=== PATIENT | male | born 1975 | race Caucasian/White ===

== ENCOUNTER 2023-05-26 20:29 | Emergency (ER) | payer BC, SELFPAY ==
[2023-05-26 20:33] VITALS: BP 155/95; PULSE 78; RESP 16; TEMP 36.4; O2SAT 96; BMI 34.7
--- NOTE | 2023-05-26 21:32 | ED_ITS ---
HPI - Abdominal Pain 2 General: Chief Complaint: Abdominal Pain Stated Complaint: abd pain, vomit blood 4 days diah. Time Seen by Provider: 05/26/23 21:30 Source: patient Mode of arrival: ambulatory Limitations: no limitations History of Present Illness: Patient is a nice 47-year-old male who presents to ED today with complaint of abdominal cramping/pain, nausea, vomiting, diarrhea. Patient states approximately 5 days ago he had fairly acute onset abdominal cramping and diarrhea that lasted one day. He attributed symptoms to possible food poisoning although cannot identify any possible culprit/poor food exposure. He states following this he was asymptomatic for approximately 3 days before symptoms starting again yesterday. He states he has had intermittent cramping, diffuse watery diarrhea, and approximately 1-2 episodes of vomiting. He states he has not ran fevers. Denies sick contacts. Denies recent antibiotic use. MD elicited complaint: abdominal pain and other (N/V/D) Pertinent past history: none Onset (ago): day(s) Pain Consistency: intermittent Location: Diffuse Severity: moderate Quality: cramping Radiation: none Migration to: no migration Exacerbating factors: nothing Relieving factors: nothing Associated Symptoms: Reports GI cramping, diarrhea, nausea and vomiting; Denies belching, bloating, chills, constipation, dysuria, fever(s), heartburn, hematochezia and melena Review of Systems 2 Const: Denies: fever(s), chills, body aches, fatigue or malaise Card: Denies: chest pain Resp: Denies: dyspnea GI: Reports: abdominal pain, nausea, vomiting, diarrhea and GI cramping; Denies: dysphagia, heartburn, constipation, bloating, belching, pain on defecation, rectal pain, hematochezia or melena : Denies: dysuria Musc: Denies: neck pain, back pain, extremity pain or joint pain Skin/Breast: Denies: rash Neuro: Denies: headache(s), numbness in extremities, weakness in extremities or sensory changes Physical Exam 2 Const: COMMON NORMALS: no acute distress, average body habitus, patient oriented x3, no limitations, healthy appearing, alert and well nourished HENMT: COMMON NORMALS: normocephalic and atraumatic HEAD & SCALP: n ormocephalic and atraumatic Eye: COMMON NORMALS: no scleral icterus Neck/C-Spine: COMMON NORMALS: full ROM, no lymphadenopathy, supple and no meningeal signs Chest: COMMONS NORMALS: normal inspection of the chest Resp: COMMON NORMALS: normal respiratory effort and clear to auscultation bilaterally AUSCULTATION: clear to auscultation bilaterally Cardio: COMMON NORMALS: regular rate and regular rhythm RATE: regular rate RHYTHM: regular rhythm GI: COMMON NORMALS: Normal to inspection, nondistended, normoactive bowel sounds present, Soft to palpation, No hepatosplenomegaly present and no masses INSPECTION: Yes normal to inspection AUSCULTATION: Yes normoactive bowel sounds PALPATION: Yes Soft to palpation, Yes Tenderness to palpation present (GI) (mild diffusely), No Guarding due to palpation present (GI), No Rigid due to palpation and Yes No hepatosplenomegaly present : COMMON NORMALS: Yes no CVA tenderness BLADDER/KIDNEY EXAM: Yes no CVA tenderness Back/Pelvis: COMMON NORMALS: no CVA tenderness and thoracic and lumbar spine normal to inspection Extremity: COMMON NORMALS: normal to inspection Neuro: COMMON NORMALS: patient oriented x3 SENSORIUM/ORIENTATION: Yes alert MENINGEAL SIGNS: Yes no meningeal signs Skin: COMMON NORMALS: no rashes or lesions noted GENERAL SKIN EXAM: no rashes or lesions noted Course 2 Vital Signs: Vital signs: Vital Signs Temperature 97.6 F 05/26/23 20:33 Pulse Rate 78 05/26/23 20:33 Respiratory Rate 16 05/26/23 20:33 Blood Pressure 155/95 05/26/23 20:33 Pulse Oximetry 96 05/26/23 20:33 MDM - Abdominal Pain Medical Decision Making Patient appears in no acute distress. His vital signs are stable. Blood work is completely unremarkable. Stool sample was given here however it was formed so C. difficile cannot be ran. Lab will try to run remainder of stool sample labs. His CT scan showing no acute findings. At this time we will treat his nausea with Zofran and give him Bentyl for the abdominal cramping. Recommend he follow-up with primary care early this week for reevaluation. Return to ED precautions given. Lab Data 05/26/23 21:56 05/26/23 21:56 Labs/Radiology: Radiology Impressions Abdomen/Pelvis CT 05/26/23 21:45 IMPRESSION: No acute findings. Laboratory Results WBC 10.20 10^3/uL (3.29-11.43) 05/26/23 21:56 RBC 5.14 10^6/uL (3.85-5.65) 05/26/23 21:56 Hgb 15.10 g/dL (11.27-16.99) 05/26/23 21:56 Hct 45.4 % (37-53) 05/26/23 21:56 MCV 88.3 fl (82-101) 05/26/23 21:56 MCH 29.4 pg (27-33) 05/26/23 21:56 MCHC 33.3 g/dL (30-55) 05/26/23 21:56 RDW 12.3 % (12.1-15.1) 05/26/23 21:56 Plt Count 225 10^3/cmm (157-399) 05/26/23 21:56 MPV 8.7 fL (7.4-10.4) 05/26/23 21:56 Neut % (Auto) 67.8 % 05/26/23 21:56 Lymph % (Auto) 20.9 % 05/26/23 21:56 Treasure % (Auto) 7.0 % 05/26/23 21:56 Eos % (Auto) 3.9 % 05/26/23 21:56 Baso % (Auto) 0.2 % 05/26/23 21:56 Neut # (Auto) 6.92 10^3/uL (1.8-7.7) 05/26/23 21:56 Lymph # (Auto) 2.1 10^3/uL (0.8-4.8) 05/26/23 21:56 Treasure # (Auto) 0.7 10^3/uL (0.2-0.9) 05/26/23 21:56 Eos # (Auto) 0.4 10^3/uL (0.0-0.8) 05/26/23 21:56 Baso # (Auto) 0.0 10^3/uL (0.0-0.1) 05/26/23 21:56 Nucleated RBC % (auto) 0 % 05/26/23 21:56 Nucleated RBCs # 0.0 /100WBC 05/26/23 21:56 PT 12.90 SECONDS (12.1-14.9) 05/26/23 21:56 INR 0.95 (0.8-1.2) 05/26/23 21:56 APTT 25.4 SECONDS (23.9-36.7) 05/26/23 21:56 Sodium 138 mmol/L (136-145) 05/26/23 21:56 Potassium 3.9 mmol/L (3.5-5.1) 05/26/23 21:56 Chloride 101 mmol/L (98-107) 05/26/23 21:56 Carbon Dioxide 23 mmol/L (22-29) 05/26/23 21:56 Anion Gap 17.9 (5-19) 05/26/23 21:56 BUN 7 mg/dL (6-20) 05/26/23 21:56 Creatinine 0.8 mg/dL (0.7-1.2) 05/26/23 21:56 GFR Calculation 102.7 mL/min (90-130) 05/26/23 21:56 Glucose 106 mg/dL (65-115) 05/26/23 21:56 Calculated Osmolality 284 mOsm/kg (285-295) L 05/26/23 21:56 Calcium 9.4 mg/dL (8.5-10.5) 05/26/23 21:56 Total Bilirubin 0.5 mg/dL (0.15-1.2) 05/26/23 21:56 AST 18 U/L (0-40) 05/26/23 21:56 ALT 40 U/L (0-41) 05/26/23 21:56 Alkaline Phosphatase 80 U/L (40-130) 05/26/23 21:56 Total Protein 7.3 g/dL (6.6-8.7) 05/26/23 21:56 Albumin 4.4 g/dL (3.5-5.2) 05/26/23 21:56 Globulin 2.9 g/dL (1.3-4.6) 05/26/23 21:56 Lipase 23 U/L (13-60) 05/26/23 21:56 All radiology interpretation(s) finalized by discharge Discharge Plan Discharge Patient Disposition: Home Clinical Impression: Gastroenteritis Condition: Stable Prescriptions: New ondansetron 4 mg tablet,disintegrating 4 mg PO Q8H PRN (Reason: nausea and vomiting) Qty: 14 0RF dicyclomine 10 mg capsule 10 mg PO TID Qty: 14 0RF Discharge Orders: Discharge ED (Routine); Ordered 05/26/23 Ordered By: Anuja Remy Referrals: Ruchi Mcnamara APRN [Primary Care Provider] - Activity Restrictions/Additional Instructions: As we discussed I want you to start doing a clear liquid diet over the next 24 to 48 hours and slowly advance to soft foods and then again advance slowly into a regular diet. Please follow-up with your primary care provider early this week if symptoms persist. You need to return to the emergency department for continued vomiting, diarrhea, severe abdominal pain, fevers, yellowing to your skin or eyes, generally feeling worse or unwell, or any other concerns you may have. I hope you begin to feel better soon. Coding Level of Care Code ED Staff Rn for Gt Tejeda
--- NOTE | 2023-05-26 21:45 | CTR_ITS ---
PROCEDURE INFORMATION: Exam: CT Abdomen And Pelvis With Contrast Exam date and time: 05/26/2023 10:18 PM Age: 47 years old Clinical indication: Nausea and vomiting; Abdominal pain; Prior surgery; Surgery date: 6+ months; Surgery type: Gb. Small bowel. Hernia. Patient HX: Epigastric pain with n/v/d. ; Additional info: Abdominal pain, diffuse diarrhea, vomiting TECHNIQUE: Imaging protocol: Computed tomography of the abdomen and pelvis with contrast. Radiation optimization: All CT scans at this facility use at least one of these dose optimization techniques: automated exposure control; mA and/or kV adjustment per patient size (includes targeted exams where dose is matched to clinical indication); or iterative reconstruction. Contrast material: OMNI 350; Contrast volume: 100 ml; Contrast route: INTRAVENOUS (IV); REPORTING DATA: Count of CT and Cardiac NM exams in prior 12 months: This patient has received 0 known CTs and 0 known cardiac nuclear medicine studies in the 12 months prior to the current study. COMPARISON: No relevant prior studies available. RADIATION DOSE METRICS: Total DLP (mGy-cm): 1109.23 FINDINGS: Liver: Unremarkable. Gallbladder and bile ducts: Cholecystectomy. Pancreas: Pancreatic atrophy. No main duct dilation. Spleen: Unremarkable. Adrenal glands: Unremarkable. Kidneys and ureters: No hydronephrosis or hydroureter. No renal or ureteral calculi. Stomach and bowel: Stomach is distended with ingested material. No bowel obstruction. Appendix: No evidence of appendicitis. Intraperitoneal space: Unremarkable. No free air. No significant fluid collection. Vasculature: No abdominal aortic aneurysm. Lymph nodes: No enlarged lymph nodes. Urinary bladder: Unremarkable as visualized. Reproductive: Unremarkable as visualized. Bones/joints: No acute fracture. Mild multilevel disc degeneration and facet arthropathy. Soft tissues: Unremarkable. CT/CT abdomen pelvis w con* [id number] IMPRESSION: No acute findings.
[2023-05-26 22:09] LABS: Basophils % 0.2 %; Eosinophils # 0.4 10^3/uL (0.0-0.8); Eosinophils % 3.9 %; Hematocrit 45.4 % (37-53); Lymphocytes # 2.1 10^3/uL (0.8-4.8); Lymphocytes % 20.9 %; Mean Corpuscular HGB Conc 33.3 g/dL (30-55); Mean Corpuscular Hemoglobin 29.4 pg (27-33); Mean Corpuscular Volume 88.3 fl (82-101); Mean Platelet Volume 8.7 fL (7.4-10.4); Monocytes # 0.7 10^3/uL (0.2-0.9); Neutrophils # 6.92 10^3/uL (1.8-7.7); Neutrophils % 67.8 %; Nucleated Red Blood Cells % 0 %; Platelet Count 225 10^3/cmm (157-399); Red Blood Count 5.14 10^6/uL (3.85-5.65); Red Cell Distribution Width 12.3 % (12.1-15.1)
[2023-05-26] MEDS: sodium chloride 0.9% 1,000 ML 999 ML IV (22:11)
[2023-05-26] MEDS: iohexol 350 mg/mL 500 mL Btl (per mL) IV (22:21)
[2023-05-26 22:24] LABS: INR 0.95 (0.8-1.2)
[2023-05-26 22:25] LABS: Partial Thromboplastin Time 25.4 SECONDS (23.9-36.7)
[2023-05-26 22:32] LABS: Alanine Aminotransferase 40 U/L (0-41); Albumin Level 4.4 g/dL (3.5-5.2); Alkaline Phosphatase 80 U/L (40-130); Anion Gap 17.9 (5-19); Aspartate Amino Transferase 18 U/L (0-40); Blood Urea Nitrogen 7 mg/dL (6-20); Calcium 9.4 mg/dL (8.5-10.5); Carbon Dioxide 23 mmol/L (22-29); Chloride 101 mmol/L (98-107); Globulin 2.9 g/dL (1.3-4.6); Glomerular Filtration Rate 102.7 mL/min (90-130); Glucose 106 mg/dL (65-115); Lipase 23 U/L (13-60); Osmolality Calculated 284 mOsm/kg (285-295); Potassium 3.9 mmol/L (3.5-5.1); Sodium 138 mmol/L (136-145); Total Bilirubin 0.5 mg/dL (0.15-1.2); Total Protein 7.3 g/dL (6.6-8.7)
[2023-05-27] MEDS: dicyclomine 10 mg Capsule PO (00:06)
[2023-05-27] MEDS: ondansetron 4 MG Tablet PO (00:06)
[2023-05-27 00:10] VITALS: BP 112/81; PULSE 78; RESP 18; O2SAT 95
== END 2023-05-27 00:09 | disposition home or self-care (01) ==
PROVIDERS: Internal Medicine; Emergency Provider Physician Assistant; PCP Nurse Practitioner Family
DX: K52.9 Noninfective gastroenteritis and colitis, unspecified (principal)
CPT/HCPCS: 74177; 80053; 82274; 83630; 83690; 85025; 85610; 85730; 96360; 96361; 99285; J7030; Q0162; Q9967

== ENCOUNTER 2024-02-05 19:42 | Emergency (ER) | payer BC, SELFPAY ==
[2024-02-05 19:56] VITALS: BP 138/86; PULSE 103; RESP 18; TEMP 36.7; O2SAT 98; BMI 34.2
[2024-02-05 20:43] VITALS: BP 138/86; PULSE 103; RESP 18; TEMP 36.7; O2SAT 98
--- NOTE | 2024-02-05 22:26 | W.ED.MALEGU ---
HPI - Male Genitourinary General: Chief complaint: Urogenital-Male Stated complaint: Lower back pain Time Seen by Provider: 02/05/24 20:30 Source: patient Mode of arrival: ambulatory Limitations: no limitations History of Present Illness: Patient is a 48-year-old male presenting to the emergency department complaining of rash for the past few days. Was diagnosed with shingles 2 days ago, states that his urged him to come to the ED as it was spreading ventrally around to his abdomen. He states he does not think anything is wrong and his pain has been controlled with gabapentin. Also was taking valacyclovir as well as prednisone. No other new symptoms reported this time. No fever, nausea, vomiting, difficulty urinating, or other symptoms at this time. MD Complaint: other (Rash) Onset (ago): day(s) Duration: constant Associated symptoms: Deny dysuria, nausea or vomiting Related Data Home Medications Medication Instructions Recorded Confirmed bupropion HCl 150 mg 24 hr tablet, mg PO 02/03/24 02/03/24 extended release cyclobenzaprine 5 mg tablet mg PO 02/03/24 02/03/24 fluoxetine 20 mg capsule mg PO 02/03/24 02/03/24 oxybutynin chloride 10 mg mg PO 02/03/24 02/03/24 tablet,extended release 24 hr trazodone 50 mg tablet mg PO 02/03/24 02/03/24 Previous Rx's Medication Instructions Recorded gabapentin 600 mg tablet 600 mg PO DAILY #45 tabs 02/03/24 prednisone 20 mg tablet 60 mg (3 x 20 mg) PO DAILY 5 days 02/03/24 #15 tabs valacyclovir 1 gram tablet 1,000 mg PO Q8H 10 days #30 tabs 02/03/24 Allergies Allergy/AdvReac Type Severity Reaction Status Date / Time No Known Allergies Allergy Verified 02/03/24 12:58 Review of Systems General: Reports: 10 or more systems reviewed and unremarkable except in HPI and below Const: Denies: fever(s), chills or fatigue Eyes: Denies: change in vision ENMT: Denies: throat pain, ear or mastoid pain or nasal discharge Card: Denies: chest pain, palpitations, swelling of feet/ankles or lightheadedness Resp: Denies: dyspnea, productive cough or wheezing GI: Denies: abdominal pain, nausea, vomiting, diarrhea or constipation : Denies: flank pain, difficulty urinating, dysuria or urinary frequency Musc: Denies: neck pain, back pain or joint pain Skin/Breast: Reports: rash Neuro: Denies: headache(s), numbness in extremities or weakness in extremities PFSH ED PFSH: Social History Smoking and tobacco/nicotine status: current every day tobacco/nicotine user (vape) Physical Exam Const: COMMON NORMALS: no acute distress and no limitations GENERAL APPEARANCE: cooperative, comfortable and well developed ORIENTATION/CONSCIOUSNESS: Yes awake HENMT: COMMON NORMALS: normocephalic, atraumatic and hearing grossly normal bilaterally HEAD & SCALP: normocephalic and atraumatic Eye: COMMON NORMALS: Equal, round and reactive pupils present, EOMs intact bilaterally and conjunctivae normal CONJUNCTIVA: Yes conjunctivae normal PUPIL: Yes Equal, round and reactive pupils present Neck/C-Spine: COMMON NORMALS: full ROM, supple and no JVD Resp: COMMON NORMALS: normal respiratory effort, No retractions, No use of accessory muscles and clear to auscultation bilaterally AUSCULTATION: clear to auscultation bilaterally Cardio: COMMON NORMALS: no JVD, regular rate, regular rhythm, No clicks present (Cardio), No murmurs present (Cardio) and No rub (Cardio) RATE: regular rate RHYTHM: regular rhythm GI: COMMON NORMALS: Normal to inspection, nondistended, normoactive bowel sounds present, Soft to palpation and non-tender AUSCULTATION: Yes normoactive bowel sounds PALPATION: Yes Soft to palpation RECTAL EXAM: Yes deferred Back/Pelvis: COMMON NORMALS: no thoracic nor lumbar tenderness and thoraco-lumbar ROM normal Extremity: COMMON NORMALS: normal to inspection, full ROM and capillary refill normal Skin: NARRATIVE SKIN EXAM: Shingles rash to patient's lower lumbar region that does wrap ventrally around to the left lower abdomen. No involvement with his genitalia. Course Vital Signs: Vital signs: Vital Signs Temperature 98.0 F 02/05/24 20:43 Pulse Rate 103 H 02/05/24 20:43 Respiratory Rate 18 02/05/24 20:43 Blood Pressure 138/86 02/05/24 20:43 Pulse Oximetry 98 02/05/24 20:43 Oxygen Delivery Me thod Room Air 02/05/24 19:56 MDM - Male Medical Decision Making Patient presented for evaluation of a shingles rash. He is currently on valacyclovir, steroids, and gabapentin. He believes nothing is wrong, however his thought he should get checked out as it was spreading towards his genitalia. Expection of this area did not reveal any involvement, did not inform him of the dermatomal pattern that this rash follows and he understands and agrees at this time. He is informed of signs to watch for and will return as needed. He is to follow-up with primary care as needed and continue his medications. No radiology studies performed this visit Discharge Plan Discharge Patient Disposition: Home Clinical Impression: Shingles Condition: Stable Prescriptions: No Action fluoxetine 20 mg capsule PO bupropion HCl 150 mg tablet extended release 24 hr PO cyclobenzaprine 5 mg tablet PO oxybutynin chloride 10 mg tablet extended release 24hr PO trazodone 50 mg tablet PO prednisone 20 mg tablet 60 mg PO DAILY 5 Days Qty: 15 0RF valacyclovir 1 gram tablet 1,000 mg PO Q8H 10 Days Qty: 30 0RF gabapentin 600 mg tablet 600 mg PO DAILY Qty: 45 0RF Rx Instructions: 600mg po qd for 3d, then 600mg bid Discharge Orders: Discharge ED (Routine); Ordered 02/05/24 Ordered By: Luis Armando Aviles Referrals: Ruchi Mcnamara APRN [Primary Care Provider] - Discharge Diet: Usual diet Discharge Activity: Increase activity as tolerated Patient Instructions: Shingles (ED) Activity Restrictions/Additional Instructions: Continue taking your valacyclovir, steroids, and gabapentin. Follow-up with primary care as needed. Return with any new or worsening. Coding Level of Care Code ED Investor Relations Manager for [employer] Tejeda
== END 2024-02-05 20:44 | disposition home or self-care (01) ==
PROVIDERS: Emergency Provider Physician Assistant; PCP Nurse Practitioner Family
DX: B02.9 Zoster without complications (principal); F17.290 Nicotine dependence, other tobacco product, uncomplicated
CPT/HCPCS: 99281